=== PATIENT | male | born 1980 | race African-American/Black ===

== ENCOUNTER 2018-12-27 11:44 | Emergency (ER) | payer SELFPAY ==
[2018-12-27] MEDS ORDERED: NA CHLORIDE 0.9% 1,000 ML ONE (12:52)
[2018-12-27] MEDS ORDERED: DICYCLOMINE HCL 10 MG CAP ONE ×2 (12:52→13:02)
[2018-12-27 12:56] LABS: Absolute Lymphocytes (CBC) 1.9 K/uL (0.7-4.9); Absolute Monocytes 0.4 K/uL (0.1-1.3); Absolute Neutrophil 3.5 K/uL (1.8-8.0); Basophils % 0.7 % (0-1.3); Eosinophils % 0.5 % (0-4.4); Hematocrit 43.1 % (39.6-49.0); Lymphocytes % 32.5 % (15.3-44.8); MPV 8.6 fL (7.6-11.3); Monocytes % 6.8 % (3.3-12.3); RBC Red Blood Cell Count 4.96 M/uL (4.33-5.43)
[2018-12-27 13:11] LABS: ALT/SGPT 25 U/L (12-78); AST/SGOT 16 U/L (15-37); Albumin 4.1 g/dL (3.4-5.0); Alkaline Phosphatase 63 U/L (45-117); BUN Blood Urea Nitrogen 9 mg/dL (7-18); Bicarbonate 31 mmol/L (21-32); Bilirubin Direct < 0.1 mg/dL (0-0.2); Bilirubin Total 0.1 mg/dL (0.2-1.0); Glucose Level 95 mg/dL (74-106); Lipase 112 U/L (73-393); Potassium 3.8 mmol/L (3.5-5.1); Protein, Total 7.8 g/dL (6.4-8.2); Sodium Level 140 mmol/L (136-145)
[2018-12-27 13:32] LABS: Urine Blood NEGATIVE (NEG); Urine Glucose NEGATIVE (NEG); Urine Protein NEGATIVE (NEG)
--- NOTE | 2018-12-27 14:56 | EDPHYS ---
Physician Documentation [facility] Name: Kunal Morales Age: 38 yrs Sex: Male : 1980 Arrival Date: 12/27/2018 Time: 11:46 Bed 16 Private MD: ED Physician Elder Godinez HPI: 12/27 13:00 This 38 yrs old Black Male presents to ER via Ambulatory with complaints of Abdominal pm1 Pain, Diarrhea, Dizziness. 13:00 The patient presents with abdominal pain in the epigastric area. Onset: The pm1 symptoms/episode began/occurred yesterday. The symptoms do not radiate. Associated signs and symptoms: Pertinent positives: diarrhea, Pertinent negatives: nausea and vomiting, chest pain, dysuria, fever, shortness of breath. The symptoms are described as crampy. Modifying factors: The symptoms are alleviated by nothing, the symptoms are aggravated by nothing. Severity of pain: in the emergency department the pain has resolved. The patient has not experienced similar symptoms in the past. The patient has not recently seen a physician. Patient with intermittent abdominal cramping with watery diarrhea. No vomiting. Patient believes that he ate something that did not agree with him, possibly [id number]. Historical: - Allergies: 12:08 Codeine; bp - Home Meds: 12:08 None [Active]; bp - PMHx: 12:08 None; bp - Immunization history:: Adult Immunizations up to date. - Social history:: Smoking status: Patient/guardian denies using tobacco. - Ebola Screening: : Patient negative for fever greater than or equal to 101.5 degrees Fahrenheit, and additional compatible Ebola Virus Disease symptoms Patient denies exposure to infectious person Patient denies travel to an Ebola-affected area in the 21 days before illness onset No symptoms or risks identified at this time. ROS: 13:00 Constitutional: Negative for fever, chills, and weight loss, Eyes: Negative for injury, pm1 pain, redness, and discharge, ENT: Negative for injury, pain, and discharge, Neck: Negative for injury, pain, and swelling, Cardiovascular: Negative for chest pain, palpitations, and edema, Respiratory: Negative for shortness of breath, cough, wheezing, and pleuritic chest pain. 13:00 Back: Negative for injury and pain, : Negative for injury, bleeding, discharge, and swelling, MS/Extremity: Negative for injury and deformity, Skin: Negative for injury, rash, and discoloration, Neuro: Negative for headache, weakness, numbness, tingling, and seizure. 13:00 Abdomen/GI: Positive for abdominal pain, diarrhea, Negative for nausea and vomiting. Exam: 13:00 Constitutional: This is a well developed, well nourished patient who is awake, alert, pm1 and in no acute distress. Head/Face: Normocephalic, atraumatic. Eyes: Pupils equal round and reactive to light, extra-ocular motions intact. Lids and lashes normal. Conjunctiva and sclera are non-icteric and not injected. Cornea within normal limits. Periorbital areas with no swelling, redness, or edema. ENT: Nares patent. No nasal discharge, no septal abnormalities noted. Tympanic membranes are normal and external auditory canals are clear. Oropharynx with no redness, swelling, or masses, exudates, or evidence of obstruction, uvula midline. Mucous membranes moist. Neck: Trachea midline, no thyromegaly or masses palpated, and no cervical lymphadenopathy. Supple, full range of motion without nuchal rigidity, or vertebral point tenderness. No Meningismus. Chest/axilla: Normal chest wall appearance and motion. Nontender with no deformity. No lesions are appreciated. Cardiovascular: Regular rate and rhythm with a normal S1 and S2. No gallops, murmurs, or rubs. Normal PMI, no JVD. No pulse deficits. Respiratory: Lungs have equal breath sounds bilaterally, clear to auscultation and percussion. No rales, rhonchi or wheezes noted. No increased work of breathing, no retractions or nasal flaring. 13:00 Back: No spinal tenderness. No costovertebral tenderness. Full range of motion. Skin: Warm, dry with normal turgor. Normal color with no rashes, no lesions, and no evidence of cellulitis. MS/ Extremity: Pulses equal, no cyanosis. Neurovascular intact. Full, normal range of motion. 13:00 Abdomen/GI: Inspection: abdomen appears normal, Bowel sounds: normal, Palpation: abdomen is soft and non-tender, mass, is not appreciated, rebound tenderness, is not appreciated. 13:00 Neuro: Orientation: is normal, Motor: is normal, moves all fours, Gait: is steady, at a normal pace, without difficulty. Vital Signs: 12:10 BP 170 / 62; Pulse 70; Resp 16; Temp 98.6; Pulse Ox 99% ; Weight 72.57 kg; Height 5 ft. bp 6 in. (167.64 cm); 12:21 BP 148 / 81 Supine; Pulse 60; Resp 18; Pulse Ox 99% on R/A; mh5 12:23 BP 145 / 78 Sitting; Pulse 59; Resp 17; Pulse Ox 99% on R/A; mh5 12:25 BP 139 / 83 Standing; Pulse 64; Resp 18; Pulse Ox 100% on R/A; mh5 13:38 BP 140 / 79; Pulse 59; Resp 16; Pulse Ox 100% ; bp 12:10 Body Mass Index 25.82 (72.57 kg, 167.64 cm) bp MDM: 11:58 Patient medically screened. pm1 14:54 Data reviewed: vital signs. Data interpreted: Pulse oximetry: on room air is 100 %. pm1 Interpretation: normal. Counseling: I had a detailed discussion with the patient and/or guardian regarding: the historical points, exam findings, and any diagnostic results supporting the discharge/admit diagnosis, lab results, the need for outpatient follow up, to return to the emergency department if symptoms worsen or persist or if there are any questions or concerns that arise at home. 15:00 ED course: Patient requesting additional pain medication. Offered CT abdomen/pelvis but pm1 patient does not want it. He wants to go home with Bentyl and let diarrhea resolve. Educated patient on return precautions. . 12/27 12:19 Order name: Basic Metabolic Panel; Complete Time: 13:37 pm1 12/27 12:19 Order name: CBC with Diff; Complete Time: 13:37 pm1 12/27 12:19 Order name: Creatinine for Radiology; Complete Time: 13:37 pm1 12/27 12:19 Order name: Hepatic Function; Complete Time: 13:37 pm1 12/27 12:19 Order name: Lipase; Complete Time: 13:37 pm1 12/27 12:34 Order name: Urine Dipstick--Ancillary (enter results); Complete Time: 13:37 eb 12/27 12:19 Order name: IV Saline Lock; Complete Time: 12:51 pm1 12/27 12:19 Order name: Labs collected and sent; Complete Time: 12:51 pm1 03 12:19 Order name: Orthostatic Blood Pressure; Complete Time: 12:44 pm1 Administered Medications: 12:45 Drug: NS 0.9% 1000 ml Route: IV; Rate: 1000 ml; Site: left antecubital; bp 14:21 Follow up: IV Status: Completed infusion; IV Intake: 1000ml bp 12:45 Drug: Bentyl 20 mg Route: PO; bp 14:20 Follow up: Response: Marked relief of symptoms bp 15:00 Drug: TORadol 30 mg Route: IVP; Site: left antecubital; bp 15:07 Follow up: Response: Pain is decreased bp Disposition: 17:17 Co-signature as Attending Physician, Elder Godinez MD. Disposition: 12/27/18 14:55 Discharged to Home. Impression: Diarrhea, unspecified, Unspecified abdominal pain. - Condition is Stable. - Discharge Instructions: Abdominal Pain, Adult, Food Choices to Help Relieve Diarrhea, Adult, Diarrhea, Adult, Viral Gastroenteritis, Adult, Food Poisoning, [id number]. - Prescriptions for Bentyl 20 mg Oral Tablet - take 1 tablet by ORAL route every 6 hours As needed; 20 tablet. Zofran 4 mg Oral Tablet - take 1 tablet by ORAL route every 12 hours As needed; 20 tablet. - Work release form, Medication Reconciliation Form, Thank You Letter, Antibiotic Education, Prescription Opioid Use form. - Follow up: Emergency Department; When: As needed; Reason: Worsening of condition. Follow up: Private Physician; When: 2 - 3 days; Reason: Recheck today's complaints, Continuance of care, Re-evaluation by your physician. - Problem is new. - Symptoms have improved. Signatures: Dispatcher [employer] EDVT Billy Craig, HEARING AID ASSEMBLY SUPERVISOR HEARING AID ASSEMBLY SUPERVISOR pm1 Elder Godinez MD MD Riccardo Lopez, RN RN bp Corrections: (The following items were deleted from the chart) 15:10 14:55 12/27/2018 14:55 Discharged to Home. Impression: Diarrhea, unspecified; bp Unspecified abdominal pain. Condition is Stable. Forms are Medication Reconciliation Form, Thank You Letter, Antibiotic Education, Prescription Opioid Use. Follow up: Emergency Department; When: As needed; Reason: Worsening of condition. Follow up: Private Physician; When: 2 - 3 days; Reason: Recheck today's complaints, Continuance of care, Re-evaluation by your physician. Problem is new. Symptoms have improved. pm1
--- NOTE | 2018-12-27 14:56 | ER ---
Nurse's Notes [facility] Name: Kunal Morales Age: 38 yrs Sex: Male : 1980 Arrival Date: 12/27/2018 Time: 11:46 Bed 16 Private MD: Diagnosis: Diarrhea, unspecified;Unspecified abdominal pain Presentation: 12/27 12:07 Presenting complaint: Patient states: STOMACH CRAMPS x2 DAYS. Transition of care: bp patient was not received from another setting of care. Onset of symptoms is unknown. Risk Assessment: Do you want to hurt yourself or someone else? Patient reports no desire to harm self or others. Initial Sepsis Screen: Does the patient meet any 2 criteria? No. Patient's initial sepsis screen is negative. Does the patient have a suspected source of infection? No. Patient's initial sepsis screen is negative. Care prior to arrival: None. 12:07 Method Of Arrival: Ambulatory bp 12:07 Acuity: LUIGI 3 bp Triage Assessment: 12:08 General: Appears in no apparent distress. uncomfortable, Behavior is calm, cooperative, bp appropriate for age. Pain: Complains of pain in abdomen diffusely. EENT: No deficits noted. Neuro: Level of Consciousness is awake, alert, obeys commands, Oriented to person, place, time, situation, Appropriate for age. Cardiovascular: No deficits noted. Respiratory: Airway is patent Respiratory effort is even, unlabored, Respiratory pattern is regular, symmetrical. GI: Abdomen is non-distended, Bowel sounds present X 4 quads. : No signs and/or symptoms were reported regarding the genitourinary system. Derm: No deficits noted. Musculoskeletal: Circulation, motion, and sensation intact. Range of motion: intact in all extremities. Historical: - Allergies: 12:08 Codeine; bp - Home Meds: 12:08 None [Active]; bp - PMHx: 12:08 None; bp - Immunization history:: Adult Immunizations up to date. - Social history:: Smoking status: Patient/guardian denies using tobacco. - Ebola Screening: : Patient negative for fever greater than or equal to 101.5 degrees Fahrenheit, and additional compatible Ebola Virus Disease symptoms Patient denies exposure to infectious person Patient denies travel to an Ebola-affected area in the 21 days before illness onset No symptoms or risks identified at this time. Screenin:13 Abuse screen: Denies threats or abuse. Denies injuries from another. Nutritional bp screening: No deficits noted. Tuberculosis screening: No symptoms or risk factors identified. Fall Risk None identified. Assessment: 12:12 General: SEE TRIAGE NOTE. GI: Abd is soft X 4 quads. bp 13:39 Reassessment: IVF INFUSING, ALL CURRENT ORDERS COMPLETED. PO CHALLENGE SUCCESSFUL. bp Vital Signs: 12:10 BP 170 / 62; Pulse 70; Resp 16; Temp 98.6; Pulse Ox 99% ; Weight 72.57 kg; Height 5 ft. bp 6 in. (167.64 cm); 12:21 BP 148 / 81 Supine; Pulse 60; Resp 18; Pulse Ox 99% on R/A; mh5 12:23 BP 145 / 78 Sitting; Pulse 59; Resp 17; Pulse Ox 99% on R/A; mh5 12:25 BP 139 / 83 Standing; Pulse 64; Resp 18; Pulse Ox 100% on R/A; mh5 13:38 BP 140 / 79; Pulse 59; Resp 16; Pulse Ox 100% ; bp 12:10 Body Mass Index 25.82 (72.57 kg, 167.64 cm) bp ED Course: 11:46 Patient arrived in ED. as 11:56 Billy Craig NP is PHCP. pm1 11:56 Elder Godinez MD is Attending Physician. pm1 11:59 Riccardo Lopez, DAMARIS is Primary Nurse. bp 12:07 Urine collected: clean catch specimen, clear, kareem colored. jb1 12:08 Triage completed. bp 12:10 Arm band placed on. bp 12:13 Patient has correct armband on for positive identification. Bed in low position. Call bp light in reach. Side rails up X2. Adult w/ patient. 12:50 Initial lab(s) drawn, by wi, sent to lab. Inserted saline lock: 20 gauge in left 5 antecubital area, using aseptic technique. Blood collected. 12:51 Urine Dipstick--Ancillary (enter results) Sent. 5 12:51 Basic Metabolic Panel Sent. 5 12:51 CBC with Diff Sent. 5 12:51 Creatinine for Radiology Sent. 5 12:51 Hepatic Function Sent. 5 12:51 Lipase Sent. 5 15:07 No provider procedures requiring assistance completed. IV discontinued, intact, bp bleeding controlled, No redness/swelling at site. Pressure dressing applied. Administered Medications: 12:45 Drug: NS 0.9% 1000 ml Route: IV; Rate: 1000 ml; Site: left antecubital; bp 14:21 Follow up: IV Status: Completed infusion; IV Intake: 1000ml bp 12:45 Drug: Bentyl 20 mg Route: PO; bp 14:20 Follow up: Response: Marked relief of symptoms bp 15:00 Drug: TORadol 30 mg Route: IVP; Site: left antecubital; bp 15:07 Follow up: Response: Pain is decreased bp Intake: 14:21 IV: 1000ml; Total: 1000ml. bp Outcome: 14:55 Discharge ordered by . pm1 15:08 Discharged to home ambulatory, with family. bp 15:08 Condition: stable 15:08 Discharge instructions given to patient, Instructed on discharge instructions, follow up and referral plans. medication usage, Demonstrated understanding of instructions, follow-up care, medications, Prescriptions given X 2. 15:10 Patient left the ED. bp Signatures: Douglas Rogers jb1 Queenie Mccabe Patrick, REVENUE FIELD AGENT REVENUE FIELD AGENT pm1 Lisa Mccabe 5 Riccardo Lopez, RN RN bp
[2018-12-27] MEDS ORDERED: KETOROLAC 30 MG/ML INJ ONE (15:13)
== END 2018-12-27 15:10 | disposition home or self-care (01) ==
LOC: ER 11:44
DX: R19.7 Diarrhea, unspecified (principal); Z88.5 Allergy status to narcotic agent
CPT/HCPCS: 36415; 80048; 80076; 81003; 83690; 85025; 96361; 96374; 99284; J7030